=== PATIENT | male | born 1980 | race African-American/Black ===

== ENCOUNTER 2017-12-23 17:13 | Emergency (ER) | payer SELFPAY ==
[2017-12-23] MEDS ORDERED: CEFTRIAXONE 1 GRAM VIAL IM ONE (18:03)
[2017-12-23] MEDS ORDERED: AZITHROMYCIN 250 MG TABLET PO ONE (18:03)
--- NOTE | 2017-12-23 18:10 | Emergency Department Record ---
History of Present Illness - General Chief complaint: Male Urogenital Problem Stated complaint: STD Time Seen by Provider: 12/23/17 18:03 Source: Patient Mode of Arrival: Ambulatory Limitations: No limitations - History of Present Illness Initial comments: 37 yo male presents with penile discharge for one day. He admits to unprotected sex with a single partner recently. The DC is a thin white DC. No blood, fever, retention, swelling, ulcers, sores, or other symptoms. MD Complaint: Dysuria, Other (STD exposure) Onset/Timin -: Days(s) Severity: Mild Quality: Burning Consistency: Intermittent Improves with: None Worsens with: Urination Reports: Denies other symptoms - Related Data Sexually active: Yes Home Medications Medication Instructions Recorded Confirmed Last Taken No Home Med [NO HOME MEDS] 12/23/17 12/23/17 Unknown Allergies Allergy/AdvReac Type Severity Reaction Status Date / Time No Known Drug Allergies Allergy Verified 12/23/17 17:39 Travel Screening - Travel/Exposure Within Last 30 Days Have you traveled within the last 30 days?: No Review of Systems Constitutional: Denies: Chills, Fever, Malaise, Weakness Eyes: Denies: Eye discharge ENT: Denies: Congestion Respiratory: Denies: Cough Cardiovascular: Denies: Chest pain Endocrine: Denies: Fatigue Gastrointestinal: Denies: Abdominal pain, Diarrhea, Nausea, Vomiting Genitourinary: Reports: Discharge, Dysuria. Denies: Frequency, Hematuria, Incontinence, Retention, Testicular pain, Testicular mass, Urgency Musculoskeletal: Denies: Arthralgia, Back pain Skin: Denies: Bruising, Change in color, Rash Neurological: Denies: Headache Psychiatric: Denies: Anxiety Hematological/Lymphatic: Denies: Blood Clots, Easy bleeding, Easy bruising, Swollen glands Past Medical History - SOCIAL HISTORY Smoking Status: Never smoker Alcohol Use: None Drug Use: None - RESPIRATORY Hx Respiratory Disorders: No - CARDIOVASCULAR Hx Cardio Disorders: No - NEURO Hx Neuro Disorders: No - GI Hx GI Disorders: No - Hx Genitourinary Disorders: No - ENDOCRINE Hx Endocrine Disorders: No - MUSCULOSKELETAL Hx Musculoskeletal Disorders: No - PSYCH Hx Psych Problems: No - HEMATOLOGY/ONCOLOGY Hx Hematology/Oncology Disorders: No Family Medical History Any Significant Family History?: No Physical Exam - General General Appearance: Alert, Oriented x3, Cooperative, No acute distress Limitations: No limitations - Head Head exam: Atraumatic, Normal inspection - Eye Eye exam: Normal appearance. negative: Conjunctival injection - ENT ENT exam: Normal exam Ear exam: Normal external inspection Nasal Exam: Normal inspection Mouth exam: Normal external inspection - Neck Neck exam: Normal inspection - Respiratory Respiratory exam: Normal lung sounds bilaterally. negative: Respiratory distress - Cardiovascular Cardiovascular Exam: Regular rate, Normal rhythm, Normal heart sounds - GI/Abdominal GI/Abdominal exam: Soft. negative: Tenderness - Rectal Rectal exam: Deferred - exam: Circumcision, Urethral discharge. negative: Normal inspection, Scrotal swelling, Testicular tenderness - Extremities Extremities exam: Normal inspection - Neurological Neurological exam: Alert, Oriented X3 - Psychiatric Psychiatric exam: Normal affect, Normal mood - Skin Skin exam: Dry, Intact, Normal color, Warm Course Vital Signs 12/23/17 17:40 Temperature 98.4 F Pulse Rate 110 H Respiratory 20 Rate Blood Pressure 139/87 Pulse Ox 99 - Reevaluation(s) Reevaluation #1: 12/23/17 18:07 Mild thin white DC Antibiotics given He was advised on safe sex He requests PCP referral He was advised to follow up for HIV testing at the health department or new PCP Disposition Disposition: Discharge Clinical Impression: STD (sexually transmitted disease) Disposition: Home, Self-Care Condition: (1) Good Instructions: Sexually Transmitted Diseases (ED) Additional Instructions: Call for a PCP Follow up with a new family doctor or the health department for HIV testing No unprotected sex Referrals: FAHAD SALOMNO [MEDICAL DOCTOR] - Time of Disposition: 18:10 Quality - Quality Measures Quality Measures: N/A - Blood Pressure Screening Does Patient Have Any of the Following: No Blood Pressure Classification: Pre-Hypertensive BP Reading Systolic Measurement: 139 Diastolic Measurement: 87 Screening for High Blood Pressure: < Pre-Hypertensive BP, F/U Documented > [ [id number]] Pre-Hypertensive Follow-up Interventions: Referral to alternative/primary care provider.
== END 2017-12-23 18:17 | disposition home or self-care (01) ==
LOC: ER 17:13
DX: A64 Unspecified sexually transmitted disease (principal); R30.0 Dysuria
CPT/HCPCS: 99283